=== PATIENT | female | born 1960 | race Caucasian/White ===

== ENCOUNTER 2017-08-10 08:31 | Inpatient (IN) | payer OTHER ==
[2017-08-10 09:07] LABS: Basophils % (Auto) 0.2 % (0.0-1.8); Eosinophils % (Auto) 0.8 % (0.0-4.3); Hematocrit 38.1 % (30.3-42.9); Hemoglobin 12.7 gm/dl (10.1-14.3); Mean Corpuscular HGB Conc 33 % (30-34); Mean Corpuscular Hemoglobin 30 pg (28-32); Mean Corpuscular Volume 91 fl (79-97); Platelet Count 206 K/mm3 (140-440); Red Blood Count 4.21 M/mm3 (3.65-5.03); Red Cell Distribution Width 18.3 % (13.2-15.2); White Blood Count 6.1 K/mm3 (4.5-11.0)
[2017-08-10 09:19] LABS: Anion Gap 20 mmol/L; BUN/Creatinine Ratio 13; Blood Urea Nitrogen 10 mg/dL (7-17); Calcium 9.2 mg/dL (8.4-10.2); Carbon Dioxide 26 mmol/L (22-30); Chloride 97.4 mmol/L (98-107); Glucose 128 mg/dL (65-100); Potassium 4.1 mmol/L (3.6-5.0); Sodium 139 mmol/L (137-145)
--- NOTE | 2017-08-10 12:01 | Emergency Department Report ---
ED Chest Pain HPI - General Chief Complaint: Chest Pain Stated Complaint: CHEST PAIN Time Seen by Provider: 08/10/17 11:57 Source: patient Mode of arrival: Ambulatory Limitations: No Limitations - History of Present Illness Initial Comments: Patient complains of anterior chest pressure that sometimes is associated with left arm tingling. She states that it does occur with exertion. Exertion has become progressively less over the last 2 weeks. She states that she does have dyspnea on exertion when she walks between rooms at home. She describes chest pressure which is intermittent and sometimes at rest. He states the last episode was perhaps an hour or 2 prior to my encounter. It did not last very long. At the time of examination the patient is chest pain-free. She denies nausea vomiting or acute diaphoresis. She states she has not been dizzy nor feeling as if she was going to pass out. Despite her multiple risk factors for coronary artery disease to include her own past medical history the fact she is a smoker and that she states both her parents had bypass operations, she states she has never had an EKG before or been evaluated in the hospital for chest pain. MD Complaint: chest pain -: week(s) (at least the last 2 weeks) Onset: during rest, during exertion Pain Location: substernal Pain Radiation: LUE Severity: moderate Quality: pressure Consistency: intermittent Improves With: nothing Worsens With: nothing re: dyspnea. denies: nausea, vomting, diaphoresis Other Symptoms: denies: cough, fever, syncope - Related Data Allergies Allergy/AdvReac Type Severity Reaction Status Date / Time Penicillins AdvReac Hives Verified 08/10/17 08:47 Heart Score - HEART Score History: Highly suspicious EKG: Non-specific Age: 45-65 Risk factors: > 3 risk factors or hx of atherosclerotic disease Troponin: < normal limit HEART Score: 6 - Critical Actions Critical Actions: 4-6 pts:12-16.6% risk of adverse cardiac event. Should be admitted ED Review of Systems ROS: Stated complaint: CHEST PAIN Other details as noted in HPI Constitutional: denies: chills, fever Eyes: denies: eye pain, eye discharge, vision change ENT: denies: ear pain, throat pain Respiratory: shortness of breath. denies: cough, wheezing Cardiovascular: chest pain. denies: palpitations Endocrine: no symptoms reported Gastrointestinal: denies: abdominal pain, nausea, diarrhea Genitourinary: denies: urgency, dysuria, discharge Musculoskeletal: denies: back pain, joint swelling, arthralgia Skin: denies: rash, lesions Neurological: denies: headache, weakness, paresthesias Psychiatric: denies: anxiety, depression Hematological/Lymphatic: denies: easy bleeding, easy bruising ED Past Medical Hx - Past Medical History Hx Hypertension: Yes - Surgical History Past Surgical History?: Yes Additional Surgical History: , Gastric bypass - Family History Family history: CAD/NC - Social History Smoking Status: Current Some Day Smoker Substance Use Type: None ED Physical Exam - General Limitations: No Limitations General appearance: alert, in no apparent distress - Head Head exam: Present: atraumatic, normocephalic - Eye Eye exam: Present: normal appearance. Absent: scleral icterus - ENT ENT exam: Present: mucous membranes moist - Neck Neck exam: Present: normal inspection. Absent: tenderness, meningismus - Respiratory Respiratory exam: Present: normal lung sounds bilaterally. Absent: respiratory distress - Cardiovascular Cardiovascular Exam: Present: regular rate, normal rhythm. Absent: systolic murmur, diastolic murmur, rubs, gallop - GI/Abdominal GI/Abdominal exam: Present: soft, normal bowel sounds. Absent: distended, tenderness, guarding, rebound, rigid - Extremities Exam Extremities exam: Present: normal inspection - Back Exam Back exam: Present: normal inspection - Neurological Exam Neurological exam: Present: alert, oriented X3, CN II-XII intact. Absent: motor sensory deficit - Psychiatric Psychiatric exam: Present: normal affect, normal mood - Skin Skin exam: Present: warm, dry, intact, normal color. Absent: rash ED Course Vital Signs 08/10/17 08/10/17 08/10/17 08:42 12:44 13:00 Temperature 98.5 F Pulse Rate 101 H 73 90 Respiratory 22 19 Rate Blood Pressure 172/97 171/108 Blood Pressure [Left] O2 Sat by Pulse 98 98 Oximetry 08/10/17 08/10/17 08/10/17 13:01 13:03 13:20 Temperature 98.4 F Pulse Rate 87 84 Respiratory 20 20 21 Rate Blood Pressure 157/121 Blood Pressure 179/102 [Left] O2 Sat by Pulse 99 99 95 Oximetry - Reevaluation(s) Reevaluation #1: She was given aspirin and nitroglycerin paste. I will leave the decision to anticoagulate up to the hospital staff. Patient was admitted by Dr. Balderas. 08/10/17 15:02 OTILIA score - Otilia Score Age > 65: (0) No Aspirin use within the Past 7 Days: (0) No 3 or more CAD Risk Factors: (1) Yes 2 or more Angina events in past 24 hrs: (1) Yes Known CAD with more than 50% Stenosis: (0) No Elevated Cardiac Markers: (0) No ST Deviation Greater than 0.5mm: (0) No OTILIA Score: 2 ED Medical Decision Making - Lab Data Result diagrams: 08/10/17 08:49 08/10/17 08:49 Laboratory Results - last 24 hr 08/10/17 08/10/17 08:49 08:49 WBC 6.1 RBC 4.21 Hgb 12.7 Hct 38.1 MCV 91 MCH 30 MCHC 33 RDW 18.3 H Plt Count 206 Lymph % (Auto) 28.9 [place] % (Auto) 10.5 H Eos % (Auto) 0.8 Baso % (Auto) 0.2 Lymph # 1.8 [place] # 0.6 Eos # 0.0 Baso # 0.0 Seg Neutrophils % 59.6 Seg Neutrophils # 3.6 Sodium 139 Potassium 4.1 Chloride 97.4 L Carbon Dioxide 26 Anion Gap 20 BUN 10 Creatinine 0.8 Estimated GFR > 60 BUN/Creatinine Ratio 13 Glucose 128 H Calcium 9.2 Troponin T < 0.010 - EKG Data -: EKG Interpreted by Me EKG shows normal: sinus rhythm, axis, intervals, QRS complexes, ST-T waves Rate: normal - EKG Data Interpretation: nonspecific ST-T wave abdirizak (borderline) - Radiology Data Radiology results: report reviewed interpreted by me: Chest x-ray shows no acute process Critical care attestation.: If time is entered above; I have spent that time in minutes in the direct care of this critically ill patient, excluding procedure time. ED Disposition Clinical Impression: Unstable angina Disposition: OP ADMIT IP TO THIS HOSP Is pt being admited?: Yes Does the pt Need Aspirin: Yes Condition: Stable Instructions: Angina (ED) Referrals: PRIMARY CARE, [Primary Care Provider] - 3-5 Days Time of Disposition: 15:04
[2017-08-10] MEDS ORDERED: ASPIRIN PO ONE (12:08)
[2017-08-10] MEDS ORDERED: NITRO-BID 2% TP ONE (12:08)
--- NOTE | 2017-08-10 13:04 | XRay Report ---
AP CHEST: HISTORY: Hypertension AP view of the chest demonstrates a normal mediastinal and cardiac contour with clear lungs and normal bony and soft tissue structures. IMPRESSION: Unremarkable AP chest.
[2017-08-10 13:19] LABS: Alanine Aminotransferase 16 units/L (7-56); Albumin 3.8 g/dL (3.9-5); Albumin/Globulin Ratio 1.2 %; Alkaline Phosphatase 111 units/L (35-129); Total Protein 6.9 g/dL (6.3-8.2)
[2017-08-10 13:22] LABS: INR 0.95 (0.87-1.13); Partial Thromboplastin Time 22.8 Sec. (24.2-36.6)
[2017-08-10 13:23] LABS: Bilirubin,Direct < 0.2 mg/dL (0-0.2)
[2017-08-10] MEDS ORDERED: TYLENOL PO PRN (14:57)
[2017-08-10] MEDS ORDERED: ZOFRAN IV PRN (14:57)
[2017-08-10] MEDS ORDERED: SODIUM CHLORIDE FLUSH SYRINGE 10 ML IV PRN (14:57)
[2017-08-10] MEDS ORDERED: NACL 0.45% 1000 ML 1,000 ML IV SCH (15:00)
--- NOTE | 2017-08-10 15:41 | History and Physical Report ---
History of Present Illness Chief complaint: My chest hurts History of present illness: 56 YO Female with HTN, Obesity, Nicotine Dependence presents to ED for evaluation. Pt states that she has experienced pain in her chest. Pt states that pain is 6/10, substernal, worse with exertion, radiates to left arm and is associated with shortness of breath. Pain is intermittent, and is sometimes experienced at rest. Pt states that the pain has been present for the past 2 weeks with worsening symptoms over the past 2 days with the last episode that occurred 1 hour prior to presentation. Pt also states that her mother and father have CAD. Pt denies fever, chills, palpitations, NVD, Syncope, BRBPR, hemoptysis, leg swelling/calf pain, prolonged travel/immobility, unintentional weight loss or night sweats. Past History Past Medical History: hypertension, other (Obesity, Nicotine Dependence) Past Surgical History: Other (C section, Gastric Bypass) Social history: , smoking. denies: alcohol abuse, prescription drug abuse, IV drug use Family history: CAD, hypertension Medications and Allergies Allergies Allergy/AdvReac Type Severity Reaction Status Date / Time Penicillins AdvReac Hives Verified 08/10/17 08:47 Home Medications Medication Instructions Recorded Confirmed Last Taken Type Citalopram Hydrobromide [Celexa] 20 mg PO DAILY 08/10/17 08/10/17 08/10/17 History Cyanocobalamin (Vitamin B-12) 1,000 mcg IJ QWEEK 08/10/17 08/10/17 08/02/17 History [Physicians Ez Use B-12] Levothyroxine Sodium [Unithroid] 112 mcg PO DAILY 08/10/17 08/10/17 08/10/17 History Multivit-Min/Folic Acid/Lrn648 1 tab PO DAILY 08/10/17 08/10/17 08/09/17 History [Alive Women's Gummy Vitamins] Active Meds: Active Medications Acetaminophen (Tylenol) 650 mg PO Q4H PRN PRN Reason: Pain MILD(1-3)/Fever >100.5/CID Famotidine (Pepcid) 20 mg PO BID NISREEN Sodium Chloride (Nacl 0.45% 1000 Ml) 1,000 mls @ 75 mls/hr IV DIRECT NISREEN Ondansetron HCl (Zofran) 4 mg IV Q8H PRN PRN Reason: N/V unrelieved by Reglan Sodium Chloride (Sodium Chloride Flush Syringe 10 Ml) 10 ml IV PRN PRN PRN Reason: LINE FLUSH Review of Systems Constitutional: no weight loss, no weight gain, no fever, no chills Ears, nose, mouth and throat: no ear pain, no ear discharge, no tinnitis, no decreased hearing, no nose pain, no nasal congestion, no nasal discharge Breasts: no change in shape, no swelling, no mass Cardiovascular: chest pain, orthopnea, shortness of breath, dyspnea on exertion , no palpitations, no rapid/irregular heart beat, no edema, no paroxysmal nocturnal dyspnea, no claudication, no phlebitis, no high blood pressure Respiratory: no cough, no cough with sputum, no excessive sputum, no hemoptysis Gastrointestinal: no abdominal pain, no nausea, no vomiting, no diarrhea, no constipation Genitourinary Female: no pelvic pain, no flank pain, no menorrhagia, no dysuria Rectal: no pain, no incontinence, no bleeding Musculoskeletal: no neck stiffness, no neck pain, no shooting arm pain, no arm numbness/tingling, no low back pain, no shooting leg pain Integumentary: no rash, no pruritis, no redness, no sores, no wounds Neurological: no transient paralysis, no paralysis, no weakness, no parathesias , no numbness, no tingling, no seizures Psychiatric: no anxiety, no memory loss, no change in sleep habits, no sleep disturbances, no insomnia, no hypersomnia, no change in appetite Endocrine: no cold intolerance, no heat intolerance, no polyphagia, no excessive thirst, no polydipsia, no polyuria, no nocturia Hematologic/Lymphatic: no easy bruising, no easy bleeding Allergic/Immunologic: no urticaria, no allergic rhinitis, no wheezing Exam - Constitutional Vitals: Temp Pulse Resp BP Pulse Ox 98.4 F 84 21 157/121 95 08/10/17 13:01 08/10/17 13:20 08/10/17 13:20 08/10/17 13:20 08/10/17 13:20 General appearance: Present: mild distress - EENT Eyes: Present: PERRL ENT: hearing intact, clear oral mucosa - Neck Neck: Present: supple, normal ROM - Respiratory Respiratory effort: normal Respiratory: bilateral: CTA - Cardiovascular Heart Sounds: Present: S1 & S2. Absent: rub, click - Extremities Extremities: pulses symmetrical, No edema Peripheral Pulses: within normal limits - Abdominal General gastrointestinal: Present: soft, non-tender, non-distended, normal bowel sounds Female genitourinary: Present: normal - Integumentary Integumentary: Present: clear, warm, dry - Musculoskeletal Musculoskeletal: gait normal, strength equal bilaterally - Psychiatric Psychiatric: appropriate mood/affect, intact judgment & insight - Neurologic Neurologic: CNII-XII intact, moves all extremities Results - Labs CBC & Chem 7: 08/10/17 15:37 08/10/17 15:36 Labs: Abnormal lab results 08/10/17 08/10/17 08/10/17 Range/Units 08:49 08:49 12:33 RDW 18.3 H (13.2-15.2) % [place] % (Auto) 10.5 H (0.0-7.3) % APTT 22.8 L (24.2-36.6) Sec. D-Dimer 1124.64 H (0-234) ng/mlDDU Chloride 97.4 L (98-107) mmol/L Glucose 128 H (65-100) mg/dL Albumin (3.9-5) g/dL 08/10/17 Range/Units 12:33 RDW (13.2-15.2) % [place] % (Auto) (0.0-7.3) % APTT (24.2-36.6) Sec. D-Dimer (0-234) ng/mlDDU Chloride (98-107) mmol/L Glucose (65-100) mg/dL Albumin 3.8 L (3.9-5) g/dL Assessment and Plan - Patient Problems (1) ACS (acute coronary syndrome) Current Visit: Yes Status: Acute Plan to address problem: Serial Cardiac enzymes, EKG, telemetry, echo, stress test, cardiology consulted. (2) Accelerated hypertension Current Visit: Yes Status: Acute Plan to address problem: Monitor bp q shift, continue medical management (3) Acute electrocardiogram changes Current Visit: Yes Status: Acute Plan to address problem: Telemetry monitoring, serial cardiac enzymes, d dimer (4) Unstable angina Current Visit: Yes Status: Acute Plan to address problem: Serial cardiac enzymes, ekg, telemetry, echo, stress test, lipid panel (5) DVT prophylaxis Current Visit: Yes Status: Acute
[2017-08-10 15:44] LABS: Basophils % (Auto) 0.3 % (0.0-1.8); Eosinophils % (Auto) 1.1 % (0.0-4.3); Hematocrit 37.5 % (30.3-42.9); Hemoglobin 12.2 gm/dl (10.1-14.3); Mean Corpuscular HGB Conc 33 % (30-34); Mean Corpuscular Hemoglobin 30 pg (28-32); Mean Corpuscular Volume 91 fl (79-97); Platelet Count 206 K/mm3 (140-440); Red Blood Count 4.11 M/mm3 (3.65-5.03); Red Cell Distribution Width 18.1 % (13.2-15.2); White Blood Count 5.9 K/mm3 (4.5-11.0)
[2017-08-10 16:06] LABS: Calcium 9.3 mg/dL (8.4-10.2); Chloride 96.7 mmol/L (98-107); Potassium 3.9 mmol/L (3.6-5.0)
[2017-08-10 17:15] LABS: Bilirubin,Urine NEG (Negative); Blood,Urine NEG (Negative); Ketones,Urine NEG (Negative); Leukocyte Esterase,Urine NEG (Negative); Mucus,Urine FEW /HPF; Nitrite,Urine NEG (Negative); Protein,Urine <15 mg/dL mg/dL (Negative); Urobilinogen,Urine < 2.0 mg/dL (<2.0)
--- NOTE | 2017-08-10 18:21 | Cat Scan Report ---
FINAL REPORT EXAM: CT ANGIO CHEST HISTORY: dypsnea TECHNIQUE: CT chest CT angiogram with intravenous contrast and reconstructions PRIORS: None. FINDINGS: There is no evidence of filling defect within the central pulmonary vasculature to suggest the presence of acute pulmonary embolus. No evidence of mediastinal pathologic lymph node enlargement Heart and great vessels are unremarkable. The aorta is normal in caliber. No focal pulmonary infiltrate identified. No pleural fluid collection seen. No acute pulmonary abnormality noted. Visualized portion of the upper abdomen demonstrates no acute change. Small dense foci are noted within the lumen of the gallbladder. There is evidence for prior gastric surgery IMPRESSION: Cholelithiasis Evidence for prior gastric surgery No CT evidence of acute pulmonary embolus
[2017-08-10] MEDS: PEPCID PO SCH (21:52)
[2017-08-11] MEDS ORDERED: LEXISCAN IV ONE ×2 (09:46)
[2017-08-11] MEDS ORDERED: Fluarix Quad 2017-2018(36 MOS+) IM ONE (12:00)
--- NOTE | 2017-08-11 12:41 | Progress Note ---
Assessment and Plan Assessment and plan: Patient is a 56-year-old woman without denies history of hypertension but she does have a history of gastric bypass, tobacco dependency and obesity who presents with chest pains radiating to the left arm into the fingertips with shortness of breath. Cardiac enzymes with negative troponins 4, urinalysis negative for UTI, CBC within normal limits, elevated d-dimer. CTA of the chest reported as no PE, cholelithiasis, evidence of prior gastric bypass surgery. Blood glucose was found to be 208, she had diabetes prior to gastric bypass. She was told by pcp, Dr. Lane, that she was pre-DM. She will return to pcp to evaluate. -Chest pain, atypical with likely costochondritis versus cardiac complete the stress test, discussed with cardiology also await echocardiogram -Cholelithiasis without acute cholecystitis, patient asymptomatic and we discussed this in detail, she will return to PCP -Hyperglycemia, she needs A1c by PCP. Check 2 hour OGTT and fasting blood sugar -Tobacco dependency: Counseling cessation done -Dyslipidemia: Lifestyle modification discussed, repeat results in 4 weeks with PCP, patient was understanding -DVT prophylaxis: SCDs and subcutaneous Lovenox Full code Disposition: Continue inpatient care, If stress test and echocardiogram unremarkable patient will be discharged home today History Interval history: Patient was seen and examined. Follow-up on current diagnosis/chest pain which comes and goes. Overnight uneventful. Patient denies any chest pain currently , shortness breath, nausea/vomiting or severe headaches. Imaging, nursing note , chart, labs and old chart reviewed. Discussed with patient. Her main issue is tingling along the palmar surface of the left hand starting with the fifth digit, along the tips of the fourth third and second. Hospitalist Physical - Physical exam Narrative exam: GEN: WDWN, NAD, AWAKE, ALERT, ORIENTATED HEENT: NCAT, EOMI, PERRL, OP Clear NECK: supple, no adenopathy, no thyromegaly, no JVD CVS/HEART: RRR, NORMAL S1S2, NO JVD, pulses present bilaterally CHEST/LUNGS: CTA B, Symmetrical chest expansion, good air entry bilaterally/ reproducible left-sided chest wall tenderness we have and ablation of shoulder also no full shoulder full range of motion of the shoulder GI/Abdomen: soft, NTND, good bowel sounds, no guarding or rebound /Bladder: no suprapubic tenderness, no CVA or paraspinal tenderness EXT/Skin: no c/c/e, no obvious rash MSK: FROM x 4 Neuro: CN 2-12 grossly intact, no new focal deficits Psych: calm - Constitutional Vitals: Temp Pulse Resp BP Pulse Ox 97.9 F 75 20 140/94 97 08/11/17 07:17 08/11/17 07:17 08/11/17 07:17 08/11/17 07:17 08/11/17 07:17 General appearance: Absent: mild distress Results - Labs CBC & Chem 7: 08/10/17 15:37 08/10/17 15:36 Labs: Laboratory Last Values WBC 5.9 K/mm3 (4.5-11.0) 08/10/17 15:37 RBC 4.11 M/mm3 (3.65-5.03) 08/10/17 15:37 Hgb 12.2 gm/dl (10.1-14.3) 08/10/17 15:37 Hct 37.5 % (30.3-42.9) 08/10/17 15:37 MCV 91 fl (79-97) 08/10/17 15:37 MCH 30 pg (28-32) 08/10/17 15:37 MCHC 33 % (30-34) 08/10/17 15:37 RDW 18.1 % (13.2-15.2) H 08/10/17 15:37 Plt Count 206 K/mm3 (140-440) 08/10/17 15:37 Lymph % (Auto) 29.1 % (13.4-35.0) 08/10/17 15:37 [place] % (Auto) 10.6 % (0.0-7.3) H 08/10/17 15:37 Eos % (Auto) 1.1 % (0.0-4.3) 08/10/17 15:37 Baso % (Auto) 0.3 % (0.0-1.8) 08/10/17 15:37 Lymph # 1.7 K/mm3 (1.2-5.4) 08/10/17 15:37 [place] # 0.6 K/mm3 (0.0-0.8) 08/10/17 15:37 Eos # 0.1 K/mm3 (0.0-0.4) 08/10/17 15:37 Baso # 0.0 K/mm3 (0.0-0.1) 08/10/17 15:37 Seg Neutrophils % 58.9 % (40.0-70.0) 08/10/17 15:37 Seg Neutrophils # 3.5 K/mm3 (1.8-7.7) 08/10/17 15:37 PT 13.2 Sec. (12.2-14.9) 08/10/17 12:33 INR 0.95 (0.87-1.13) 08/10/17 12:33 APTT 22.8 Sec. (24.2-36.6) L 08/10/17 12:33 D-Dimer 1124.64 ng/mlDDU (0-234) H 08/10/17 12:33 Sodium 137 mmol/L (137-145) 08/10/17 15:36 Potassium 3.9 mmol/L (3.6-5.0) 08/10/17 15:36 Chloride 96.7 mmol/L (98-107) L 08/10/17 15:36 Carbon Dioxide 23 mmol/L (22-30) 08/10/17 15:36 Anion Gap 21 mmol/L 08/10/17 15:36 BUN 11 mg/dL (7-17) 08/10/17 15:36 Creatinine 1.1 mg/dL (0.7-1.2) 08/10/17 15:36 Estimated GFR 52 ml/min 08/10/17 15:36 BUN/Creatinine Ratio 10 % 08/10/17 15:36 Glucose 208 mg/dL (65-100) H 08/10/17 15:36 Calcium 9.3 mg/dL (8.4-10.2) 08/10/17 15:36 Magnesium 1.70 mg/dL (1.7-2.3) 08/10/17 12:33 Total Bilirubin 0.50 mg/dL (0.1-1.2) 08/10/17 12:33 Direct Bilirubin < 0.2 mg/dL (0-0.2) 08/10/17 12:33 AST 23 units/L (5-40) 08/10/17 12:33 ALT 16 units/L (7-56) 08/10/17 12:33 Alkaline Phosphatase 111 units/L (35-129) 08/10/17 12:33 Troponin T < 0.010 ng/mL (0.00-0.029) 08/10/17 21:00 NT-Pro-B Natriuret Pep 87.28 pg/mL (0-900) 08/10/17 12:33 Total Protein 6.9 g/dL (6.3-8.2) 08/10/17 12:33 Albumin 3.8 g/dL (3.9-5) L 08/10/17 12:33 Albumin/Globulin Ratio 1.2 % 08/10/17 12:33 Triglycerides 286 mg/dL (2-149) H 08/10/17 15:36 Cholesterol 251 mg/dL (50-199) H 08/10/17 15:36 LDL Cholesterol Direct 114 mg/dL (50-130) 08/10/17 15:36 HDL Cholesterol 80 mg/dL (40-59) H 08/10/17 15:36 Cholesterol/HDL Ratio 3.13 % 08/10/17 15:36 Urine Color Yellow (Yellow) 08/10/17 16:48 Urine Turbidity Clear (Clear) 08/10/17 16:48 Urine pH 5.0 (5.0-7.0) 08/10/17 16:48 Ur Specific [place] 1.019 (1.003-1.030) 08/10/17 16:48 Urine Protein <15 mg/dl mg/dL (Negative) 08/10/17 16:48 Urine Glucose (UA) Neg mg/dL (Negative) 08/10/17 16:48 Urine Ketones Neg mg/dL (Negative) 08/10/17 16:48 Urine Blood Neg (Negative) 08/10/17 16:48 Urine Nitrite Neg (Negative) 08/10/17 16:48 Urine Bilirubin Neg (Negative) 08/10/17 16:48 Urine Urobilinogen < 2.0 mg/dL (<2.0) 08/10/17 16:48 Ur Leukocyte Esterase Neg (Negative) 08/10/17 16:48 Urine WBC (Auto) 4.0 /HPF (0.0-6.0) 08/10/17 16:48 Urine RBC (Auto) 1.0 /HPF (0.0-6.0) 08/10/17 16:48 U Epithel Cells (Auto) 1.0 /HPF (0-13.0) 08/10/17 16:48 Urine Mucus Few /HPF 08/10/17 16:48
[2017-08-11] MEDS: PEPCID PO SCH (12:47)
--- NOTE | 2017-08-11 12:51 | Discharge Summary ---
Providers - Providers Date of Admission: 08/10/17 16:33 Attending physician: JUSTA MARADIAGA Primary care physician: ELDER ASSISTANT Hospitalization Condition: Stable Hospital course: Patient is a 56-year-old woman with a history of morbid obesity status post gastric bypass, dyslipidemia, tobacco dependency and hypothyroidism. She presents with chest pains radiating to the left arm into the fingertips with shortness of breath. Cardiac troponins negative 4, urinalysis negative for UTI , CBC within normal limits, elevated d-dimer. CTA of the chest reported as no PE, cholelithiasis, evidence of prior gastric bypass surgery. Blood glucose was found to be 208, she had diabetes prior to gastric bypass. She was told by pcp, Dr. Lane, that she was pre-DM. She will return to pcp to evaluate. -Chest pain, atypical with likely costochondritis versus cardiac complete the stress test, discussed with cardiology also await echocardiogram -Cholelithiasis without acute cholecystitis, patient asymptomatic and we discussed this in detail, she will return to PCP -Hyperglycemia, she needs A1c by PCP. Check 2 hour OGTT and fasting blood sugar -Tobacco dependency: Counseling cessation done -Dyslipidemia: Lifestyle modification discussed, repeat results in 4 weeks with PCP, patient was understanding -DVT prophylaxis: SCDs and subcutaneous Lovenox Full code Disposition: Continue inpatient care, If stress test and echocardiogram unremarkable patient will be discharged home today Disposition: DC TO HOME OR SELFCARE Time spent for discharge: 35 minutes Core Measure Documentation - Palliative Care Palliative Care/ Comfort Measures: Not Applicable - Core Measures Any of the following diagnoses?: none - VTE Discharge Requirements Deep Vein Thrombosis/Pulmonary Embolism Present on Admission: No Has pt received <5 days of overlap therapy or INR<2.0: No Anticoagulant overlap therapy prescribed at discharge: No Contraindication No Overlap Therapy order at DC: Not Indicated Exam - Physical Exam Narrative exam: GEN: WDWN, NAD, AWAKE, ALERT, ORIENTATED HEENT: NCAT, EOMI, PERRL, OP Clear NECK: supple, no adenopathy, no thyromegaly, no JVD CVS/HEART: RRR, NORMAL S1S2, NO JVD, pulses present bilaterally CHEST/LUNGS: CTA B, Symmetrical chest expansion, good air entry bilaterally/ reproducible left-sided chest wall tenderness we have and ablation of shoulder also no full shoulder full range of motion of the shoulder GI/Abdomen: soft, NTND, good bowel sounds, no guarding or rebound /Bladder: no suprapubic tenderness, no CVA or paraspinal tenderness EXT/Skin: no c/c/e, no obvious rash MSK: FROM x 4 Neuro: CN 2-12 grossly intact, no new focal deficits Psych: calm - Constitutional Vitals: Temp Pulse Resp BP Pulse Ox 97.9 F 75 20 140/94 97 08/11/17 07:17 08/11/17 07:17 08/11/17 07:17 08/11/17 07:17 08/11/17 07:17 Plan Activity: other (no strenous activity until cleared by pcp) Diet: low salt, diabetic Special Instructions: record daily BP diary, record blood sugar diary Additional Instructions: Check A1c with PCP. Repeat lipid profile in 4 weeks. Keep a diary of blood glucose intake to PCP Follow up with: PRIMARY CAREMD [Primary Care Provider] - 3-5 Days
[2017-08-11 14:11] VITALS: BP 184/101
--- NOTE | 2017-08-12 00:43 | Treadmill Report ---
MYOCARDIAL PERFUSION STUDY Resting technetium scan revealed homogeneous radioisotope activity throughout the myocardium. On post-Lexiscan, again there was similar radioisotope uptake throughout the myocardium. On gated scan, there was no evidence of segmental motion abnormality. Left ventricular ejection fraction was noted to be at 61%. IMPRESSION: 1. This test is negative for ischemia. 2. Preserved left ventricular systolic function. JOB# [id number] RICHARD/STEPHANIE
== END 2017-08-11 15:47 | disposition home or self-care (01) | DRG 206 ==
LOC: ED 08:31 → 4A 16:33
PROVIDERS: ADMIT Internal Medicine; ATTEND Internal Medicine
DX: M94.0 Chondrocostal junction syndrome [Tietze] (principal); F17.200 Nicotine dependence, unspecified, uncomplicated; I10 Essential (primary) hypertension; R94.31 Abnormal electrocardiogram [ECG] [EKG]; Z88.0 Allergy status to penicillin; Z68.31 Body mass index [BMI] 31.0-31.9, adult; Z82.49 Family history of ischemic heart disease and other diseases of the circulatory system; K80.20 Calculus of gallbladder without cholecystitis without obstruction; R73.9 Hyperglycemia, unspecified; E66.01 Morbid (severe) obesity due to excess calories
CPT/HCPCS: 36415; 71010; 71275; 78452; 80048; 80061; 80074; 81001; 83735; 83880; 84484; 85025; 85379; 85610; 85730; 90686; 93005; 93010; 93017; 93306; 99406; A9502; J2785; Q9967